=== PATIENT | male | born 1970 ===

== ENCOUNTER 2025-07-19 14:52 | Outpatient (AMB) | payer OTHER, SELFPAY ==
--- NOTE | 2025-07-19 14:55 | MHC.OFFVIS ---
Intake Visit Reasons: Spickard on foot Intake Note: Sav is a 54 year old male who presents today as a new patient for a evaluation of his right second toe corn. Patient reports ongoing pain for a couple months. Patient has been using bandages to wrap his toe. Allergies CILANTRO Allergy (Severe, Uncoded 05/12/20 17:10) SEVERE VOMITING HPI HPI Spickard on foot: Details: 54 y/o male seen today for initial evaluation of right 2nd toe lesion. States this has been present for several months. It has worsened over the past 2 weeks. He has been applying salicylic acid. He also complains of left big toenail discoloration and thickening. 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 Mild right 2nd digit edema Derm: Large hyperkeratotic lesion to the lateral aspect right 2nd digit with underlying 2 cm x 1 cm by 0.1 cm ulceration with a granular wound base. Macerated tissue. No erythema. Left hallux nail is brittle, discolored, with ridges. Neuro: Protective sensation grossly intact to bilateral lower extremities MSK: Tracking hallux valgus deformity bilateral feet, right foot that is a varus deformity. Flexion deformity 2nd through 5th IPJ bilateral feet. Office Procedures AMB Debridement/Avulsion Podia Details: Procedure: Sharp excisional debridement Depth: Subcutaneous layer Indication: Right foot ulcer 2nd digit Anesthesia: N/A Description: The site was prepped using alcohol/cleanser. A #15 Blade was used to perform a sharp excisional wound debridement of the lesion to the level of subcutaneous layer. The lesion measured 2 cm x 1 cm at the end of debridement. Dressings: Betadine, Band-Aid Tolerance: Patient tolerated procedure well, no immediate complications. 64285-[id number] of active wound <20cm Procedure code (CPT) selection complete Office Meds lidocaine HCl 2 % mucosal jelly in applicator Performing Provider: Poncho Díaz DPM Performing Location: [facility] [place] [facility] [place] Administered by: Poncho Díaz DPM on 07/19/25 15:34 Dose Route Admin Location Dispensed Lot Number Expiration Date [facility] Licensed Loan Officer 5 mL topical 5 mL 19660-870-46 [employer] Assessment & Plan Assessment & Plan (1) Right foot ulcer: Code(s): L97.519 - Non-pressure chronic ulcer of other part of right foot with unspecified severity Category: Medical Qualifiers: Non-pressure ulcer stage: with fat layer exposed Qualified Code(s): L97.512 - Non-pressure chronic ulcer of other part of right foot with fat layer exposed Plan: Debrided right foot lesion with a 15 blade Dressed with iodine and Band-Aid and gauze fluff Recommended applying iodine and Band-Aid daily. Recommended toe separator. Follow up in 2 weeks. Instructed the patient to call and/or present sooner if he has clinical signs of infection. (2) Hallux valgus (acquired), right foot: Code(s): M20.11 - Hallux valgus (acquired), right foot Category: Medical Plan: Recommended toe separator (3) Hallux valgus (acquired), left foot: Code(s): M20.12 - Hallux valgus (acquired), left foot Category: Medical Plan: Recommended toe separator (4) Acquired hammertoes of both feet: Code(s): M20.41 - Other hammer toe(s) (acquired), right foot; M20.42 - Other hammer toe(s) (acquired), left foot Category: Medical Plan: Rx right foot x-ray Orders: Orders XR foot RT min 3V Today L97.512 - Non-pressure chronic ulcer of other part of right foot with fat layer exposed, M20.11 - Hallux valgus (acquired), right foot AMB Debridement/Avulsion Podiatry Today L97.512 - Non-pressure chronic ulcer of other part of right foot with fat layer exposed Medications: New povidone-iodine 10% (First Aid Antiseptic (povidone-iodine)) Apply to right foot second toe twice per day 1 appl topical BID PRN 236 mL 1RF right 2nd toe ulcer L97.519 - Non-pressure chronic ulcer of other part of right foot with unspecified severity Coding Level of Care Code New Pt Level 4 (23248) Diagnoses Ulcer of right foot with fat layer exposed L97.512 Non-pressure ulcer stage: with fat layer exposed Hallux valgus (acquired), right foot M20.11 Hallux valgus (acquired), left foot M20.12 Acquired hammertoes of both feet M20.41; M20.42 CPT Codes Skin Debridement - CPT: 31916-Gfipzudzpsx of active wound <20cm ([id number]) Time Spent (min) 35
== END 2025-07-19 15:24 | disposition home or self-care (01) ==
LOC: HO.HPODS 14:53
PROVIDERS: PCP Internal Medicine; Visit Provider Student in an Organized Health Care Education/Training Program
DX: L97.512 Non-pressure chronic ulcer of other part of right foot with fat layer exposed (principal); M20.11 Hallux valgus (acquired), right foot; M20.12 Hallux valgus (acquired), left foot; M20.41 Other hammer toe(s) (acquired), right foot; M20.42 Other hammer toe(s) (acquired), left foot
CPT/HCPCS: 97597; 99204

== ENCOUNTER → 2025-07-19 14:52 | Outpatient (BNVA) | payer OTHER, SELFPAY | PROVIDERS: PCP Internal Medicine; Visit Provider Student in an Organized Health Care Education/Training Program | DX: L97.512 Non-pressure chronic ulcer of other part of right foot with fat layer exposed (principal); M20.11 Hallux valgus (acquired), right foot; M20.12 Hallux valgus (acquired), left foot; M20.41 Other hammer toe(s) (acquired), right foot; M20.42 Other hammer toe(s) (acquired), left foot | CPT/HCPCS: 97597; 99202 ==